=== PATIENT | male | born 1950 | race Native Hawaiian/Other Pacific Islander ===

== ENCOUNTER 2020-04-21 10:02 | Outpatient (CLI) | payer OTHER | END 2020-04-21 19:37 | disposition home or self-care (01) | LOC: INF 10:02 | PROVIDERS: ATTEND Internal Medicine | DX: Z23 Encounter for immunization (principal) ==

== ENCOUNTER 2020-05-19 07:36 | Outpatient (CLI) | payer OTHER | END 2020-05-19 19:19 | disposition home or self-care (01) | LOC: INF 07:36 | PROVIDERS: ATTEND Internal Medicine | DX: Z23 Encounter for immunization (principal) | CPT/HCPCS: 96372 ==